=== PATIENT | female | born 1975 | race Caucasian/White ===

== ENCOUNTER 2017-07-17 11:06 | Day surgery (SDC) | payer BC, OTHER ==
[2017-07-14 11:31] VITALS: BMI 31.9
[2017-07-17 11:40] VITALS: TEMP 98.8
[2017-07-17] MEDS ORDERED: PROPOFOL 20 ML ONE (12:30)
[2017-07-17 13:50] VITALS: BP 103/64; PULSE 83
--- NOTE | 2017-07-19 12:02 | PATH ---
Surgical Pathology Report Patient Name: AARON [facility]. Rec. #: [id number] /Age/Gender: 1975 (Age: 41) / F Account: [id number] Location: [facility]-ENDOSCOPY Taken: 07/17/2017 Received: 07/17/2017 Reported: 07/19/2017 Physicians: James Spear M.D. Specimen(s) Received A: BX DUODENUM B: BX ANTRUM C: BX DISTAL ESOPHAGUS Clinical History Preoperative diagnosis: Heart burn Postop diagnosis: Hiatal hernia, gastritis, esophagitis Final Diagnosis A. DUODENUM, BIOPSY: DUODENAL MUCOSA WITH NO PATHOLOGIC CHANGES. NO HISTOLOGIC EVIDENCE OF GLUTEN SENSITIVE ENTEROPATHY (CELIAC SPRUE) IDENTIFIED. B. STOMACH, ANTRUM, BIOPSY: GASTRIC ANTRAL MUCOSA WITH MILD REACTIVE, AND FOCAL MILD CHRONIC GASTRITIS. IMMUNOSTAIN FOR H. PYLORI IS NEGATIVE. C. DISTAL ESOPHAGUS, BIOPSY: SQUAMOUS MUCOSA WITH PAPILLOMATOSIS AND INCREASED INTRAEPITHELIAL EOSINOPHILS CONSISTENT WITH REFLUX ESOPHAGITIS, AND GASTRIC TYPE MUCOSA WITH ACUTE AND CHRONIC INFLAMMATION. NO INTESTINAL METAPLASIA IDENTIFIED (NO CAUSEY'S IDENTIFIED). Electronically Signed Emre Painter M.D. Gross Description A. Received in formalin, labeled "biopsy duodenum" are 2 [place], irregular portions of soft tissue averaging 0.3 cm. in greatest dimension. The specimens are submitted in toto in one cassette. B. Received in formalin, labeled "biopsy antrum" are 2 [place], irregular portions of soft tissue measuring 0.3 and 0.4 cm. in greatest dimension. The specimens are submitted in toto in one cassette. C. Received in formalin, labeled "biopsy distal esophagus" are 2 [place], irregular portions of soft tissue measuring 0.1 and 0.5 cm. in greatest dimension. The specimens are submitted in toto in one cassette. 07/18/201707/18/2017
== END 2017-07-17 13:55 | disposition home or self-care (01) ==
LOC: FASU-ENDO 11:06
PROVIDERS: ATTEND Internal Medicine Gastroenterology
PROC: 0DB78ZX Excision of Stomach, Pylorus, Via Natural or Artificial Opening Endoscopic, Diagnostic (ICD-10-PCS; 2017-07-17)
PROC: 0DB38ZX Excision of Lower Esophagus, Via Natural or Artificial Opening Endoscopic, Diagnostic (ICD-10-PCS; 2017-07-17)
PROC: 0DB98ZX Excision of Duodenum, Via Natural or Artificial Opening Endoscopic, Diagnostic (ICD-10-PCS; principal; 2017-07-17 12:00)
DX: K20.9 Esophagitis, unspecified (principal); K44.9 Diaphragmatic hernia without obstruction or gangrene
CPT/HCPCS: 84703; 88305-TC; 88342-TC

== ENCOUNTER 2021-10-04 08:08 | Day surgery (SDC) | payer OTHER ==
[2021-10-01 16:54] VITALS: BMI 34.3
[2021-10-04 10:31] VITALS: TEMP 97.7
[2021-10-04 11:20] VITALS: BP 111/74; PULSE 78
== END 2021-10-04 11:15 | disposition home or self-care (01) ==
LOC: FASU-ENDO 08:08
PROVIDERS: ATTEND Internal Medicine Gastroenterology
PROC: 0DBN8ZX Excision of Sigmoid Colon, Via Natural or Artificial Opening Endoscopic, Diagnostic (ICD-10-PCS; principal; 2021-10-04 09:44)
DX: Z12.11 Encounter for screening for malignant neoplasm of colon (principal); D12.5 Benign neoplasm of sigmoid colon
CPT/HCPCS: 84703; 88305-TC